=== PATIENT | female | born 1990 | race Caucasian/White ===

== ENCOUNTER 2024-02-15 18:55 | Inpatient (IN) | payer OTHER ==
[2024-02-15 20:35] LABS: INR 1.07 (0.83-1.09); PROTHROMBIN TIME (PATIENT) 12.1 SEC (9.7-13.0)
[2024-02-15 20:36] LABS: BASO % 0.6 % (0-2.0); EOS % 0.2 % (0-4.5); HEMATOCRIT 32.5 % (32.4-45.2); HEMOGLOBIN 10.9 GM/dL (10.7-15.3); LYMPH % 29.6 % (8-40); MCH 30.6 pg (25.7-33.7); MCHC 33.6 g/dl (32.0-36.0); MEAN CELL VOLUME 90.8 fl (80-96); MEAN PLT VOLUME 7.7 fl (7.5-11.1); MONO % 9.6 % (3.8-10.2); PLATELET COUNT 338 10^3/uL (134-434); RBC 3.58 M/mm3 (3.60-5.2); RDW 13.6 % (11.6-15.6); WHITE BLOOD COUNT 5.1 K/mm3 (4.0-10.0)
[2024-02-15 20:37] VITALS: BMI 44.7
[2024-02-15 20:38] LABS: ACTIVATED PTT 24.2 SECONDS (25.2-36.5)
[2024-02-15 20:48] LABS: POTASSIUM 4.1 mmol/L (3.5-5.1)
[2024-02-15 20:51] LABS: CALCIUM 8.6 mg/dL (8.5-10.1)
[2024-02-15 20:52] LABS: BLOOD UREA NITROGEN 6.3 mg/dL (7-18)
[2024-02-15 20:55] LABS: CREATININE 0.7 mg/dL (0.55-1.3)
[2024-02-15] MEDS: DEXTROSE 5%-LACTATED RINGERS 1,000 ML IV SCH (21:31)
[2024-02-15] MEDS: MISOPROSTOL 100 MCG TABLET PV SCH (21:40)
[2024-02-16] MEDS ORDERED: PENICILLIN G POTASSIUM 20,000,000 (20Mm) UNITS VIAL IVPB ONE (02:38)
[2024-02-16] MEDS ORDERED: PENICILLIN G POTASSIUM 20,000,000 (20Mm) UNITS VIAL IVPB SCH (02:45)
[2024-02-16] MEDS: PENICILLIN G POTASSIUM 5,000,000 UNIT/250 ML BAG IVPB ONE (05:45)
[2024-02-16] MEDS ORDERED: PENICILLIN G POTASSIUM 5,000,000 UNIT/250 ML BAG IVPB ONE (05:56)
[2024-02-16] MEDS ORDERED: OXYTOCIN 20 UNITS in 0.9% NS 20 UNIT/1,000 ML INFUS.BAG IV ONE (06:26)
[2024-02-16] MEDS ORDERED: PENICILLIN G POTASSIUM 2,500,000 UNIT in DEXTROSE 5%-WATER - 250 ML IVPB SCH (07:45)
[2024-02-16] MEDS ORDERED: FERROUS SO4 325 MG TABLET (FP) ONE (08:20)
[2024-02-16] MEDS ORDERED: IBUPROFEN 600 MG TABLET (FP) PO ONE (08:23)
[2024-02-16] MEDS: FERROUS SO4 325 MG TABLET (FP) PO SCH (08:24)
[2024-02-16] MEDS: IBUPROFEN 600 MG TABLET (FP) PO PRN (08:25)
[2024-02-16 08:58] LABS: CORD BASE EXCESS -3.4 mmol/L (0-2); CORD HCO3 21.7 mmHg (20-29); CORD PCO2 39.4 mmHg (30-78); CORD pH 7.358 (7.14-7.44)
[2024-02-16 08:59] LABS: CORD BASE EXCESS -4.5 mmol/L (0-2); CORD HCO3 23.3 mmHg (20-29); CORD PCO2 53.5 mmHg (30-78); CORD pH 7.256 (7.14-7.44)
[2024-02-16] MEDS: DOCUSATE SODIUM 100 MG CAPSULE (FP) PO SCH (17:40)
[2024-02-17 08:21] LABS: BASO % 0.6 % (0-2.0); EOS % 0.4 % (0-4.5); HEMATOCRIT 30.4 % (32.4-45.2); HEMOGLOBIN 10.2 GM/dL (10.7-15.3); LYMPH % 26.3 % (8-40); MCH 30.2 pg (25.7-33.7); MCHC 33.6 g/dl (32.0-36.0); MEAN PLT VOLUME 7.8 fl (7.5-11.1); MONO % 8.2 % (3.8-10.2); NEUT % 64.5 % (42.8-82.8); PLATELET COUNT 304 10^3/uL (134-434); RBC 3.38 M/mm3 (3.60-5.2)
[2024-02-17] MEDS: ACETAMINOPHEN 325 MG TABLET (FP) PO PRN (08:37)
[2024-02-17 10:35] VITALS: RESP 18
[2024-02-17] MEDS: OXYTOCIN 20 UNITS in 0.9% NS 20 UNIT/1,000 ML INFUS.BAG IV SCH (20:27)
[2024-02-17] MEDS: WITCH HAZEL 50% (TUCKS) 40 PAD/JAR PAD TP PRN (21:06)
[2024-02-17] MEDS: BENZOCAINE 28 GM HEMORRHOIDAL OINTMENT TP PRN (21:07)
[2024-02-18 00:55] VITALS: TEMP 98.6
[2024-02-18 09:49] VITALS: BP 110/79; PULSE 67
== END 2024-02-18 12:25 | disposition home or self-care (01) | DRG 560 ==
LOC: JLDR 18:55 → J3W 02-16 09:10
PROVIDERS: ADMIT Obstetrics & Gynecology Maternal & Fetal Medicine; ATTEND Obstetrics & Gynecology Maternal & Fetal Medicine
PROC: 10E0XZZ Delivery of Products of Conception, External Approach (ICD-10-PCS; principal; 2024-02-16)
DX: O99.824 Streptococcus B carrier state complicating childbirth (principal); Z3A.39 39 weeks gestation of pregnancy; Z37.0 Single live birth
CPT/HCPCS: 36415; 36600; 59409; 80048; 82803; 85025; 85610; 85730; 86780; 86850; 86900; 86901; 88307-TC